=== PATIENT | female | born 1960 | race Caucasian/White ===

== ENCOUNTER 2017-01-24 13:32 | Emergency (ER) | payer OTHER ==
[~2017-01-24] VITALS: Ht 157.5 cm; Wt 127.0 kg
--- NOTE | ~2017-01-24 | EKG ---
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 : 1960 Requested By: Francisco Javier Willingham Order Number: [id number] MD: Nasim Sellers Measurements Intervals [place] Rate: 57 P: 22 UT: 170 QRS: -40 QRSD: 97 T: 14 QT: 401 QTc: 391 Interpretive Statements Sinus rhythm Left axis deviation Abnormal R-wave progression, late transition Compared to ECG 11/02/2014 18:16:32 Left-axis deviation now present ST (T wave) deviation no longer present Electronically Signed On 01-24-2017 14:43:08 CDT by Nasim Sellers [email or web address] <ELECTRONICALLY SIGNED> By: Nasim Sellers MD 01/24/17 1443 1347 1347 Nasim Sellers MD /EPI
[~2017-01-24 13:32] MED LIST: ALBUTEROL INH; APAP500; BENZONATATE200 MG PO; CLARITIN10 MG PO; LEVAQUIN 500 M500 M2 PO; LEVOTHYROXINE 0.1 MG PO; NAPROSYN250 MG PO; PEPCID40 MG PO; PERCOCET 5-3251 EACH PO; PHENERGAN 25 MG25 M1 PO; PREDNISONE 20 M20 MG PO
[2017-01-24] MEDS ORDERED: IBUPROFEN 200200 M1 PO (13:48)
[2017-01-24 14:34] LABS: HEMATOCRIT 42.1 % (37.0-47.0); HEMOGLOBIN 14.1 gm/dL (12.0-15.0); MCH 30.9 pg (26.0-34.0); MCHC 33.5 g/dL (28.0-37.0); MCV 92.3 fL (80.0-100.0); RBC 4.56 mil/uL (4.20-5.00); RDW 14.3 % (10.5-14.5); WBC 6.8 thou/uL (4.0-11.0)
[2017-01-24 14:38] LABS: ANION GAP 8 mmol/L (7-16); BUN 15 mg/dL (7-18); CALCIUM 8.8 mg/dL (8.5-10.1); CHLORIDE 107 mmol/L (98-107); CO2 24 mmol/L (21-32); CREATININE 0.9 mg/dL (0.6-1.0); GLUCOSE 93 mg/dL (74-106); SODIUM 139 mmol/L (136-145)
[2017-01-24 14:46] LABS: TROPONIN-I < 0.04 ng/mL (<0.04-0.07)
[2017-01-24 15:22] LABS: URINE BILIRUBIN NEGATIVE (Negative); URINE BLOOD NEGATIVE (Negative); URINE COLOR YELLOW; URINE GLUCOSE-RANDOM* NEGATIVE (Negative); URINE KETONES NEGATIVE (Negative); URINE LEUKOCYTES-REFLEX NEGATIVE (Negative); URINE PROTEIN (DIPSTICK) 1+ (Negative); URINE SPECIFIC GRAVITY >= 1.030 (1.003-1.035); URINE UROBILINOGEN 0.2 E.U./dl (0.2-1.0)
[2017-01-24 15:31] LABS: SQUAMOUS 0-3 Few /LPF (0-3)
[2017-01-24 15:32] LABS: CASTS None Seen /LPF (None Seen); CRYSTALS None Seen /LPF (None Seen); URINE RBC None Seen /HPF (0-2); URINE WBC-REFLEX 0-5 Rare /HPF (0-5)
[2017-01-24] MEDS ORDERED: ZOFRAN ODT4 MG PO (16:10)
[2017-01-24] MEDS ORDERED: CLEOCIN HCL150 MG PO (16:10)
[2017-01-24 16:27] VITALS: BP 166/81
== END 2017-01-24 17:20 | disposition home or self-care (01) ==
LOC: ER 13:32
PROVIDERS: Emergency Medicine
DX: L03.116 Cellulitis of left lower limb (principal); J45.909 Unspecified asthma, uncomplicated; G47.30 Sleep apnea, unspecified; E03.9 Hypothyroidism, unspecified; I10 Essential (primary) hypertension; F43.10 Post-traumatic stress disorder, unspecified

== ENCOUNTER 2017-01-26 15:40 | Inpatient (IN) | payer OTHER ==
[~2017-01-26] VITALS: Ht 162.6 cm; Wt 127.0 kg
--- NOTE | ~2017-01-26 | D ---
[facility] [place] [address] [place] [address] DISCHARGE SUMMARY Name: FELI WRIGHT Room #: 539-P [facility] M.R.#: [id number] Admission: 01/26/17 Attend Phys: Laurent Thomas MD Discharge: 01/30/17 Date of : 64 Report #: [id number] THIS REPORT FOR: //name// CC: FERNANDO physician/PCP Laurent Thomas DATE OF SERVICE: 01/30/2017 HISTORY OF PRESENT ILLNESS: The patient is a 56-year-old female with a first episode with left leg cellulitis, who failed outpatient treatment. The patient was prescribed clindamycin, but in , she did not get better. She presented to the emergency room. Please refer to admission H and P for details. HOSPITALIZATION COURSE: The patient was hospitalized at [facility]. She was treated with vancomycin. Her condition improved significantly. Currently, the patient's erythema has almost resolved. She is pain free. She has no difficulty in ambulating. The patient's hospital stay was uneventful. The patient's overall condition and physical examination is acceptable, as documented in the patient's chart. DISCHARGE DIAGNOSES: 1. Left leg cellulitis, resolving. 2. Hypothyroidism, TSH approximately . Levothyroxine dose increased from 100 mcg a day to 125 mcg a day. 3. Morbid obesity. 4. Sleep apnea. 5. Hypertension. 6. Posttraumatic stress disorder. 7. Asthma. DISCHARGE MEDICATIONS: Please refer to the medication reconciliation list. FOLLOWUP PLAN: Follow up with the primary care physician in 1-2 weeks. <ELECTRONICALLY SIGNED> By: Zelalem Parikh MD 01/30/17 1807 1303 1428 Zelalem Parikh MD /nt
[~2017-01-26 15:40] MED LIST changes: +CLEOCIN HCL150 MG PO; +IBUPROFEN 200200 M1 PO; +ZOFRAN ODT4 MG PO
[2017-01-26 15:43] VITALS: BP 163/88
[2017-01-26 17:23] LABS: ABSOLUTE NEUTROPHILS 5.2 thou/uL (1.4-8.2); EOSINOPHILS 3.5 % (0.0-3.0); HEMATOCRIT 41.3 % (37.0-47.0); HEMOGLOBIN 13.9 gm/dL (12.0-15.0); LYMPHOCYTES 30.7 % (24.0-44.0); MCH 30.7 pg (26.0-34.0); MCHC 33.8 g/dL (28.0-37.0); MCV 90.7 fL (80.0-100.0); PLATELET COUNT 153 thou/uL (150-400); POLYS 57.8 % (36.0-66.0); RBC 4.55 mil/uL (4.20-5.00); RDW 14.1 % (10.5-14.5); WBC 9.1 thou/uL (4.0-11.0)
[2017-01-26 17:25] LABS: MANUAL DIFF NO
[2017-01-26 17:38] LABS: CALCIUM 9.1 mg/dL (8.5-10.1); CREATININE 1.1 mg/dL (0.6-1.0); POTASSIUM 4.6 mmol/L (3.5-5.1)
[2017-01-26 17:43] LABS: ALBUMIN 3.4 g/dL (3.4-5.0); TOTAL BILIRUBIN 0.4 mg/dL (<0.1-1.0); TOTAL PROTEIN 7.1 g/dL (6.4-8.2)
[2017-01-26] MEDS ORDERED: PEPCID20 MG PO (18:01)
[2017-01-26] MEDS ORDERED: ONDANSETRON HCL4 M2 PO (18:01)
[2017-01-26 18:28] VITALS: BP 155/72
[2017-01-26] MEDS ORDERED: MIRAPEX0.125 MG (20:34)
[2017-01-26] MEDS ORDERED: FOSAMAX 70 MG T70 MG PO (20:35)
[2017-01-26] MEDS ORDERED: MOBIC15 MG PO (20:35)
[2017-01-26] MEDS ORDERED: VITAMIN D31000 UNI2 PO (20:37)
[2017-01-26] MEDS ORDERED: UNICOMPLEX M TA1 TA1 PO (20:38)
[2017-01-26] MEDS ORDERED: B COMPLEX WITH1 EACH (20:38)
[2017-01-26] MEDS ORDERED: DIPHENHIST50 MG (20:39)
[2017-01-27 04:31] VITALS: BP 112/60
[2017-01-27 06:25] LABS: ABSOLUTE NEUTROPHILS 4.9 thou/uL (1.4-8.2); BASOPHILS 0.8 % (0.0-2.0); EOSINOPHILS 4.7 % (0.0-3.0); HEMATOCRIT 39.4 % (37.0-47.0); HEMOGLOBIN 13.2 gm/dL (12.0-15.0); LYMPHOCYTES 28.3 % (24.0-44.0); MCH 30.3 pg (26.0-34.0); MCHC 33.5 g/dL (28.0-37.0); MCV 90.5 fL (80.0-100.0); MONOCYTES 7.8 % (1.0-8.0); PLATELET COUNT 147 thou/uL (150-400); POLYS 58.4 % (36.0-66.0); RBC 4.35 mil/uL (4.20-5.00); RDW 13.9 % (10.5-14.5); WBC 8.4 thou/uL (4.0-11.0)
[2017-01-27 06:28] LABS: MANUAL DIFF NO
[2017-01-27 06:35] LABS: CALCIUM 8.6 mg/dL (8.5-10.1); POTASSIUM 4.3 mmol/L (3.5-5.1)
[2017-01-27 07:45] VITALS: BP 149/85
[2017-01-27 15:40] VITALS: BP 154/96
[2017-01-27 19:40] VITALS: BP 124/59
[2017-01-28 03:55] VITALS: BP 149/77
[2017-01-28 07:30] VITALS: BP 153/64
[2017-01-28 15:20] VITALS: BP 158/74
[2017-01-28 20:00] VITALS: BP 149/89
[2017-01-29 03:37] VITALS: BP 151/78
[2017-01-29 05:12] LABS: GLYCOHEMOGLOBIN (HGB A1C) 5.2 % (4.8-5.6)
[2017-01-29 07:41] VITALS: BP 145/83
[2017-01-29 15:44] VITALS: BP 152/94
[2017-01-29 19:50] VITALS: BP 144/86
[2017-01-30 04:00] VITALS: BP 105/64
[2017-01-30 05:41] LABS: HEMATOCRIT 41.3 % (37.0-47.0); HEMOGLOBIN 13.8 gm/dL (12.0-15.0); MCH 30.8 pg (26.0-34.0); MCHC 33.5 g/dL (28.0-37.0); PLATELET COUNT 192 thou/uL (150-400); RBC 4.49 mil/uL (4.20-5.00); RDW 14.1 % (10.5-14.5); WBC 10.6 thou/uL (4.0-11.0)
[2017-01-30 05:51] LABS: MANUAL DIFF YES
[2017-01-30 05:59] LABS: POTASSIUM 4.4 mmol/L (3.5-5.1)
[2017-01-30 08:02] VITALS: BP 149/83
[2017-01-30 08:04] LABS: ABSOLUTE NEUTROPHILS 6.7 thou/uL (1.4-8.2); ANISOCYTOSIS SLIGHT; METAMYELOCYTES 3 %; TOTAL CELL COUNT 100
[2017-01-30] MEDS ORDERED: LEVOTHYROXIN0.125 M1 PO (13:07)
[2017-01-30] MEDS ORDERED: ONDANSETRON HCL4 M2 PO (13:07)
[2017-01-30] MEDS ORDERED: CLEOCIN HCL150 MG PO (13:07)
[2017-01-30 13:17] VITALS: BP 149/83
[2017-01-30 15:25] VITALS: BP 149/83
== END 2017-01-30 15:26 | disposition home or self-care (01) | DRG 603 ==
LOC: ER 15:40 → EROBS 17:57 → 5S 17:57
PROVIDERS: Internal Medicine Endocrinology, Diabetes & Metabolism; Physician Assistant
DX: L03.116 Cellulitis of left lower limb (principal); Z68.42 Body mass index [BMI] 45.0-49.9, adult; E03.9 Hypothyroidism, unspecified; J45.909 Unspecified asthma, uncomplicated; E66.01 Morbid (severe) obesity due to excess calories; G47.30 Sleep apnea, unspecified; I10 Essential (primary) hypertension; F43.10 Post-traumatic stress disorder, unspecified; X58.XXXA Exposure to other specified factors, initial encounter; Y93.89 Activity, other specified; Y92.89 Other specified places as the place of occurrence of the external cause; Z79.899 Other long term (current) drug therapy; Y99.8 Other external cause status
CPT/HCPCS: 10086

== ENCOUNTER 2018-09-16 10:29 | Emergency (ER) | payer OTHER ==
[~2018-09-16] VITALS: Ht 157.5 cm; Wt 130.6 kg
[~2018-09-16 10:29] MED LIST changes: +B COMPLEX WITH1 EACH; +DIPHENHIST50 MG; +FOSAMAX 70 MG T70 MG PO; +LEVOTHYROXIN0.125 M1 PO; +MIRAPEX0.125 MG; +MOBIC15 MG PO; +ONDANSETRON HCL4 M2 PO; +PEPCID20 MG PO; +UNICOMPLEX M TA1 TA1 PO; +VITAMIN D31000 UNI2 PO
[2018-09-16 11:34] LABS: ABSOLUTE NEUTROPHILS 9.2 thou/uL (1.4-8.2); BASOPHILS 0.2 % (0.0-2.0); EOSINOPHILS 0.3 % (0.0-3.0); HEMATOCRIT 42.9 % (37.0-47.0); HEMOGLOBIN 14.7 gm/dL (12.0-15.0); LYMPHOCYTES 7.2 % (24.0-44.0); MCH 30.3 pg (26.0-34.0); MCHC 34.3 g/dL (28.0-37.0); MCV 88.4 fL (80.0-100.0); MONOCYTES 5.4 % (1.0-8.0); PLATELET COUNT 153 thou/uL (150-400); POLYS 86.9 % (36.0-66.0); RBC 4.85 mil/uL (4.20-5.00); RDW 14.6 % (10.5-14.5); WBC 10.6 thou/uL (4.0-11.0)
[2018-09-16 11:35] LABS: URINE BILIRUBIN NEGATIVE (Negative); URINE BLOOD TRACE (Negative); URINE COLOR YELLOW; URINE GLUCOSE-RANDOM* NEGATIVE (Negative); URINE KETONES NEGATIVE (Negative); URINE LEUKOCYTES-REFLEX 2+ (Negative); URINE NITRITE-REFLEX NEGATIVE (Negative); URINE PROTEIN (DIPSTICK) NEGATIVE (Negative); URINE UROBILINOGEN 0.2 E.U./dl (0.2-1.0)
[2018-09-16 11:36] LABS: CREATININE 2.1 mg/dL (0.6-1.0); POTASSIUM 4.2 mmol/L (3.5-5.1)
[2018-09-16 11:36] LABS: URINE CLARITY HAZY
[2018-09-16 11:43] LABS: ALBUMIN 3.7 g/dL (3.4-5.0); TOTAL BILIRUBIN 0.5 mg/dL (<0.1-1.0); TOTAL PROTEIN 7.9 g/dL (6.4-8.2)
[2018-09-16 11:51] LABS: CASTS None Seen /LPF (None Seen); SQUAMOUS >10 Many /LPF (0-3)
[2018-09-16 11:52] LABS: BACTERIA-REFLEX 1-9 Few /HPF (None Seen); CRYSTALS None Seen /LPF (None Seen); URINE RBC 0-2 Rare /HPF (0-2); URINE WBC-REFLEX >25 Many /HPF (0-5); WBC CLUMPS Few (None Seen)
[2018-09-16] MEDS ORDERED: VYVANSE70 MG PO (12:19)
[2018-09-16] MEDS ORDERED: VITAMIN K100 MCG PO (12:20)
[2018-09-16] MEDS ORDERED: MAGOX 400400 MG PO (12:20)
[2018-09-16 15:49] VITALS: BP 150/64
--- NOTE | 2018-09-17 08:20 | EKG ---
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 : 1960 Requested By: Kenzie Dsouza Order Number: [id number] MD: Boyd Lawton Measurements Intervals [place] Rate: 67 P: 45 AR: 162 QRS: -52 QRSD: 102 T: -7 QT: 433 QTc: 457 Interpretive Statements Sinus rhythm Left axis deviation Abnormal R-wave progression, late transition Nonspecific T abnormalities Compared to ECG 01/24/2017 13:47:51 T-wave abnormality now present Electronically Signed On 09-17-2018 8:19:54 [facility] by Boyd Lawton [email or web address] <ELECTRONICALLY SIGNED> By: Boyd Lawton MD, [facility] 09/17/18 0819 1519 1519 Boyd Lawton MD, [facility] /EPI
== END 2018-09-16 15:49 | disposition short-term general hospital (02) ==
LOC: ER 10:29
PROVIDERS: Physician Assistant
DX: N39.0 Urinary tract infection, site not specified (principal); N13.30 Unspecified hydronephrosis; N13.4 Hydroureter; N13.5 Crossing vessel and stricture of ureter without hydronephrosis; N17.9 Acute kidney failure, unspecified; J45.909 Unspecified asthma, uncomplicated; G47.30 Sleep apnea, unspecified; E03.9 Hypothyroidism, unspecified; I10 Essential (primary) hypertension; Z88.1 Allergy status to other antibiotic agents